=== PATIENT | female | born 1960 | race Caucasian/White ===

== ENCOUNTER 2016-11-01 05:18 | Day surgery (SDC) | payer MEDICARE, MEDICAID ==
[2016-10-30 14:06] LABS: HEMATOCRIT 38.1 % (36.0-48.0); HEMOGLOBIN 12.7 g/dL (12-16); MCH 31.2 pg (26.0-34.0); MCHC 33.3 g/dL (31.0-37.0); MCV 93.6 fL (80.0-100.0); MEAN PLATELET VOLUME 10.4 fL (7.4-10.4); RBC 4.07 10x6/uL (4.00-5.40); RDW 12.8 % (11.5-14.5); WBC 5.9 10x3/uL (4.8-10.8)
[2016-10-30 14:28] LABS: CALC OSMOLALITY 275 mosm/kg (275-300); CALCIUM 9.3 mg/dL (8.5-10.1); CARBON DIOXIDE 23.6 mmol/L (21.0-32.0); CHLORIDE - SERUM 101 mmol/L (98-107); CREATININE - SERUM 0.8 mg/dL (0.6-1.3); POTASSIUM - SERUM 4.1 mmol/L (3.5-5.1); SODIUM 138 mmol/L (136-145); UREA NITROGEN 13 mg/dL (7-18); eGFR NON AFRICAN AMERICAN 78 mL/min (90-120)
[2016-10-30 14:31] LABS: GLUCOSE 97 mg/dL (74-106)
[~2016-11-01] VITALS: Ht 157.5 cm; Wt 90.7 kg
[~2016-11-01 05:18] MED LIST: ABILIFY2 MG PO; ALDACTONE25 MG PO; APAP/BUTALBITAL1 TAB PO; BENADRYL50 MG PO; BENTYL10 MG PO; CELEXA40 MG PO; CIPRO500 MG PO; CLARITIN 10 MG10 MG PO; DEMADEX20 MG PO; EFFEXOR37.5 MG PO; ELIQUIS2.5 MG PO; ESTRACE 0.5 MG0.5 MG PO; FISH OIL 1,0001 CA1 PO; FISH OIL 1,2001 CAP PO; FLUTICASONE PRO16 GM NS; KLOR-CON M2020 MEQ PO; LIBRAX CAPSULE1 CAP PO; LODINE200 MG PO; MULTI-DAY VITAM1 TAB PO; NEURONTIN 300300 MG PO; OXYBUTYNIN CHLOR5 MG PO; PERCOCET 10/3251 TA1 PO; PRILOSEC20 MG PO; ROBAXIN-750750 MG PO; ULTRAM50 MG PO; VITAMIN C1000 MG PO; ZANAFLEX4 MG PO; ZANTAC150 MG PO
[2016-11-01] MEDS ORDERED: BELSOMRA20 MG PO (06:10)
[2016-11-01] MEDS ORDERED: ALDACTONE25 MG PO (06:11)
[2016-11-01] MEDS ORDERED: DEMADEX20 MG PO (06:13)
[2016-11-01 06:17] VITALS: BP 134/82; Ht 157.5 cm; Wt 90.7 kg
--- NOTE | 2016-11-01 09:06 | NUR ---
PT SLEEPING WHEN NOT STIMULATED
--- NOTE | 2016-11-01 12:17 | NUR ---
1045--IV DC'D, PT UP TO DRESS. VIVIAN PORTILLO 1100--DISCHARGE INSTRUCTIONS GIVEN, PT VERBALIZES UNDERSTANDING. PT OFF UNIT VIA WC. VIVIAN PORTILLO
--- NOTE | 2016-11-15 08:54 | OP ---
PATIENT NAME: ERIN ARNDT MEDICAL RECORD: [id number] :60 LOCATION:[facility] ADMISSION DATE: SURGEON: FREDIS WELLS DPM DATE OF OPERATION: 11/01/2016 PREOPERATIVE DIAGNOSIS: Arthritis, right first metatarsophalangeal joint. POSTOPERATIVE DIAGNOSIS: Arthritis, right first metatarsophalangeal joint. PROCEDURE: Right first MPJ fusion. ANESTHESIA: Local with IV sedation utilizing lidocaine and Marcaine, approximately 20 cc total on the first ray. HEMOSTASIS: Right thigh tourniquet at 350 mmHg. PREOPERATIVE DETAILS: The patient was taken to the OR, placed on the operating table in supine position. This was followed by induction of general anesthesia and infiltration of local anesthetic. The right extremity was then prepped and draped in the usual aseptic technique followed by elevation of extremity and inflation of tourniquet. A 15 blade was used to create a 4-5 cm linear incision over the dorsal aspect of the first metatarsal, extending to the IPJ of the hallux. The incision was deepened down through subcutaneous tissue. A linear capsulotomy was performed. The head of the first metatarsal was delivered. There was noted to be significant arthritis of the first metatarsophalangeal joint. At this time, the K-wire was used and cup and cone reamer was placed over the K-wire on both the head as well as the base of the proximal phalanx to ream the joint and once done, a temporary fixation was placed with the hallux in rectus position, a 5-hole plate was then placed across the fusion site with one of the holes being across the fusion site for compression. Excellent alignment was noted following application of internal fixation. There was excellent rigid internal fixation noted as well. The wound was flushed. The capsule was closed with 2-0 Vicryl, the subcutaneous tissue with 4-0 Rapide and the skin was closed with 4-0 Rapide in a subcuticular technique followed by Dermabond, Adaptic, 4 x 4s and Conform were used to dress the wound, followed by application of a modified Sumner compression dressing. Tourniquet was deflated. POSTOPERATIVE DETAILS: The patient tolerated the procedure well and left the OR with vital signs stable and vascular status at preop levels. The patient was transported to recovery per anesthesia in stable condition. TRANSINT:[id number] Voice Confirmation ID: [id number] DOCUMENT ID: [id number] FREDIS WELLS DPM at 0854 CC: [id number] DICTATION DATE: 11/01/16 0858 PHARM TECH: 11/01/16 1309 [facility] [place] 11/01/16 [place] [id number] [place] [id number]
== END 2016-11-01 11:00 | disposition home or self-care (01) ==
LOC: D.OPS 05:18 → D.PAN 07:30 → D.OPS 07:30
PROVIDERS: Anesthesiology
DX: M13.871 Other specified arthritis, right ankle and foot (principal)

== ENCOUNTER → 2016-12-14 17:14 | Outpatient (CLI) | payer MEDICARE, MEDICAID ==
[2016-11-01 06:17] VITALS: BMI 36.6
[~2016-12-14 17:14] MED LIST changes: +BELSOMRA20 MG PO
== END | disposition home or self-care (01) ==
LOC: D.SLEEP 17:14
DX: G47.33 Obstructive sleep apnea (adult) (pediatric) (principal)